=== PATIENT | female | born 1980 | race Caucasian/White ===

== ENCOUNTER 2016-10-03 | Emergency (ER) | payer SELFPAY | END 2016-10-03 16:53 | disposition home or self-care (01) | DX: M79.662 Pain in left lower leg (principal) | CPT/HCPCS: 93971; 99283 ==

== ENCOUNTER → 2020-10-26 | Outpatient (CLI) | payer OTHER ==
[2020-10-26 15:26] LABS: HEMOGLOBIN 11.6 gm/dl (12.3-15.3); RED BLOOD COUNT 4.01 M/UL (4.00-5.10)
[2020-10-26 15:30] LABS: WHITE BLOOD COUNT 42.3 K/UL (4.5-11.0)
[2020-10-26 15:37] LABS: BUN/CREATININE RATIO 26 (0-10)
== END ==
LOC: LAB 13:55
DX: C92.10 Chronic myeloid leukemia, BCR/ABL-positive, not having achieved remission (principal)
CPT/HCPCS: 80053; 85007; 85027

== ENCOUNTER → 2020-11-02 | Outpatient (CLI) | payer OTHER | LOC: RAD 13:21 | DX: B34.9 Viral infection, unspecified (principal); R91.8 Other nonspecific abnormal finding of lung field | CPT/HCPCS: 71046 ==

== ENCOUNTER → 2020-12-07 | Outpatient (CLI) | payer OTHER ==
[2020-12-07 15:48] LABS: BUN/CREATININE RATIO 12 (0-10)
[2020-12-07 17:32] LABS: HEMOGLOBIN 9.3 gm/dl (12.3-15.3); RED BLOOD COUNT 3.45 M/UL (4.00-5.10)
== END ==
LOC: LAB 14:55
PROVIDERS: Physician Assistant
DX: J18.9 Pneumonia, unspecified organism (principal); C92.10 Chronic myeloid leukemia, BCR/ABL-positive, not having achieved remission; J40 Bronchitis, not specified as acute or chronic
CPT/HCPCS: 36415; 71046; 80053; 85007; 85027

== ENCOUNTER 2021-06-27 12:21 | Emergency (ER) | payer OTHER ==
[2021-06-27 13:44] LABS: RED BLOOD COUNT 3.19 M/UL (4.00-5.10)
[2021-06-27 14:02] LABS: BUN/CREATININE RATIO 10 (0-10)
[2021-06-27 14:17] LABS: WHITE BLOOD COUNT 151.9 K/UL (4.5-11.0)
== END 2021-06-27 16:00 | disposition home or self-care (01) ==
LOC: ER1 12:21
PROVIDERS: Physician Assistant
DX: R21 Rash and other nonspecific skin eruption (principal); R51.9 Headache, unspecified; D72.829 Elevated white blood cell count, unspecified; D64.9 Anemia, unspecified
CPT/HCPCS: 70450; 80053; 81001; 83690; 84703; 85007; 85027; 96374; 96375; 99284; J1200; J2765

== ENCOUNTER → 2021-08-25 | Outpatient (CLI) | payer OTHER ==
[2021-08-25 10:57] LABS: RED BLOOD COUNT 2.87 M/UL (4.00-5.10); WHITE BLOOD COUNT 3.7 K/UL (4.5-11.0)
== END ==
LOC: OPSV 10:15
PROVIDERS: Internal Medicine Hematology & Oncology
DX: C92.10 Chronic myeloid leukemia, BCR/ABL-positive, not having achieved remission (principal)
CPT/HCPCS: 85025

== ENCOUNTER → 2021-08-27 | Outpatient (CLI) | payer OTHER ==
[~2021-08-27] VITALS: Ht 147.3 cm; Wt 40.8 kg
[2021-08-27 12:14] LABS: HEMOGLOBIN 8.3 gm/dl (12.3-15.3); RED BLOOD COUNT 3.06 M/UL (4.00-5.10)
[2021-08-27 12:17] LABS: WHITE BLOOD COUNT 6.1 K/UL (4.5-11.0)
== END ==
LOC: OPSV 11:00
PROVIDERS: Internal Medicine Hematology & Oncology
DX: C92.10 Chronic myeloid leukemia, BCR/ABL-positive, not having achieved remission (principal)
CPT/HCPCS: 85025; 96523; J1642

== ENCOUNTER → 2021-09-03 | Outpatient (CLI) | payer OTHER ==
[~2021-09-03] VITALS: Ht 152.4 cm; Wt 41.0 kg
[2021-09-03 11:35] LABS: HEMOGLOBIN 7.4 gm/dl (12.3-15.3); RED BLOOD COUNT 2.67 M/UL (4.00-5.10)
[2021-09-03 12:19] LABS: BUN/CREATININE RATIO 14 (0-10)
[2021-09-03 12:26] LABS: WHITE BLOOD COUNT 38.1 K/UL (4.5-11.0)
== END ==
LOC: OPSV 10:54
PROVIDERS: Internal Medicine Hematology & Oncology
DX: Z45.2 Encounter for adjustment and management of vascular access device (principal)
CPT/HCPCS: 80053; 85007; 85027; J1642

== ENCOUNTER → 2021-09-08 | Outpatient (CLI) | payer OTHER ==
[~2021-09-08] VITALS: Ht 152.4 cm; Wt 41.0 kg
[2021-09-08 12:32] LABS: BUN/CREATININE RATIO 24 (0-10)
[2021-09-08 13:03] LABS: RED BLOOD COUNT 2.59 M/UL (4.00-5.10)
[2021-09-08 15:09] LABS: WHITE BLOOD COUNT 39.8 K/UL (4.5-11.0)
== END ==
LOC: OPSV 11:00
PROVIDERS: Internal Medicine Hematology & Oncology
DX: C92.10 Chronic myeloid leukemia, BCR/ABL-positive, not having achieved remission (principal)
CPT/HCPCS: 80053; J1642

== ENCOUNTER 2021-09-14 15:26 | Emergency (ER) | payer OTHER ==
[2021-09-14 16:00] LABS: RED BLOOD COUNT 2.28 M/UL (4.00-5.10)
[2021-09-14 16:16] LABS: HEMOGLOBIN 6.3 gm/dl (12.3-15.3); WHITE BLOOD COUNT 108.3 K/UL (4.5-11.0)
[2021-09-14 16:18] LABS: BUN/CREATININE RATIO 11 (0-10)
[2021-09-15 01:47] LABS: HEMOGLOBIN 7.5 gm/dl (12.3-15.3); RED BLOOD COUNT 2.62 M/UL (4.00-5.10); WHITE BLOOD COUNT 87.2 K/UL (4.5-11.0)
[2021-09-16] MEDS ORDERED: HYDROCODON-ACE1 EAC4 PO (20:51)
[2021-09-16] MEDS ORDERED: PROTONIX40 MG PO (20:55)
[2021-09-16] MEDS ORDERED: ONDANSETRON ODT4 MG SL (20:55)
== END 2021-09-15 02:35 | disposition home or self-care (01) ==
LOC: ER1 15:26
PROVIDERS: Emergency Medicine; Physician Assistant
DX: C95.90 Leukemia, unspecified not having achieved remission (principal); D64.9 Anemia, unspecified; Z20.822 Contact with and (suspected) exposure to COVID-19
CPT/HCPCS: 0240U; 36430; 80053; 85007; 85027; 86850; 86900; 86901; 86920; 99283; P9016

== ENCOUNTER 2021-09-16 15:29 | Emergency (ER) | payer OTHER ==
[2021-09-16 16:48] LABS: HEMOGLOBIN 9.1 gm/dl (12.3-15.3)
[2021-09-16 16:53] LABS: BUN/CREATININE RATIO 25 (0-10)
[2021-09-16 16:58] LABS: RED BLOOD COUNT 3.22 M/UL (4.00-5.10)
[2021-09-16 17:19] LABS: WHITE BLOOD COUNT 126.3 K/UL (4.5-11.0)
[2021-09-16] MEDS ORDERED: HYDROCODON-ACE1 EAC4 PO (20:51)
[2021-09-16] MEDS ORDERED: PROTONIX40 MG PO (20:55)
[2021-09-16] MEDS ORDERED: ONDANSETRON ODT4 MG SL (20:55)
== END 2021-09-17 03:00 | disposition short-term general hospital (02) ==
LOC: ER1 15:29
PROVIDERS: Physician Assistant Medical
DX: R16.1 Splenomegaly, not elsewhere classified (principal); C92.10 Chronic myeloid leukemia, BCR/ABL-positive, not having achieved remission; Z20.822 Contact with and (suspected) exposure to COVID-19
CPT/HCPCS: 80053; 81001; 82550; 82553; 83605; 83690; 83874; 84484; 84703; 85007; 85027; 93005; 96374; 96375; 99285; C9113; J1170; J2270; J2405; Q9967; U0002

== ENCOUNTER → 2021-10-01 | Outpatient (CLI) | payer OTHER ==
[~2021-10-01] VITALS: Ht 152.4 cm; Wt 41.0 kg
[~2021-10-01] MED LIST: HYDROCODON-ACE1 EAC4 PO; ONDANSETRON ODT4 MG SL; PROTONIX40 MG PO
[2021-10-01 11:13] LABS: HEMOGLOBIN 6.8 gm/dl (12.3-15.3)
== END ==
LOC: OPSV 09:49
PROVIDERS: Internal Medicine Hematology & Oncology
DX: D64.9 Anemia, unspecified (principal); C91.10 Chronic lymphocytic leukemia of B-cell type not having achieved remission
CPT/HCPCS: 36430; 85014; 85018; 86850; 86900; 86901; 86920; 96375; J1642; J1940; P9016

== ENCOUNTER 2021-11-13 21:43 | Emergency (ER) | payer OTHER ==
[2021-11-14] LABS: RED BLOOD COUNT 2.02 M/UL (4.00-5.10)
[2021-11-14 00:05] LABS: HEMOGLOBIN 5.9 gm/dl (12.3-15.3); WHITE BLOOD COUNT 93.3 K/UL (4.5-11.0)
[2021-11-14 00:14] LABS: BUN/CREATININE RATIO 28 (0-10)
== END 2021-11-14 04:36 | disposition short-term general hospital (02) ==
LOC: ER1 21:43
PROVIDERS: Student in an Organized Health Care Education/Training Program
DX: I27.89 Other specified pulmonary heart diseases (principal); I26.99 Other pulmonary embolism without acute cor pulmonale; R16.1 Splenomegaly, not elsewhere classified; Z20.822 Contact with and (suspected) exposure to COVID-19
CPT/HCPCS: 36430; 71045; 80053; 85007; 85027; 85610; 85730; 86850; 86900; 86901; 86920; 96374; 96376; 99285; J1644; J2270; J2405; J7030; J7050; P9016; U0002

== ENCOUNTER 2021-11-29 16:20 | Inpatient (IN) | payer OTHER ==
[~2021-11-29] VITALS: Ht 147.3 cm; Wt 44.5 kg
[2021-11-29 18:52] LABS: RED BLOOD COUNT 1.72 M/UL (4.00-5.10)
[2021-11-29 19:22] LABS: HEMOGLOBIN 5.1 gm/dl (12.3-15.3)
[2021-11-29 19:47] LABS: BUN/CREATININE RATIO 8 (0-10)
[2021-11-30 07:04] LABS: BUN/CREATININE RATIO 5 (0-10)
[2021-11-30 07:17] LABS: HEMOGLOBIN 6.3 gm/dl (12.3-15.3); RED BLOOD COUNT 2.19 M/UL (4.00-5.10); WHITE BLOOD COUNT 275.5 K/UL (4.5-11.0)
[2021-11-30 08:37] LABS: HEMOGLOBIN 6.9 gm/dl (12.3-15.3)
[2021-11-30] MEDS ORDERED: ELIQUIS5 MG PO (09:40)
[2021-11-30] MEDS ORDERED: VENCLEXTA 100 MG PO (09:42)
[2021-11-30] MEDS ORDERED: HYDROXYUREA500 MG PO (09:42)
[2021-11-30] MEDS ORDERED: LORAZEPAM0.5 MG PO (09:43)
[2021-11-30] MEDS ORDERED: ONDANSETRON HCL8 MG PO (09:43)
[2021-11-30] MEDS ORDERED: FAMOTIDINE20 MG PO (12:04)
[2021-11-30] MEDS ORDERED: SENNA8.6 MG PO (12:04)
[2021-11-30] MEDS ORDERED: PEG3350510 GM PO (12:04)
[2021-11-30 15:07] LABS: HEMOGLOBIN 8.7 gm/dl (12.3-15.3)
[2021-12-01 02:14] LABS: HEMOGLOBIN 9.8 gm/dl (12.3-15.3)
[2021-12-01 02:27] LABS: RED BLOOD COUNT 3.31 M/UL (4.00-5.10); WHITE BLOOD COUNT 307.8 K/UL (4.5-11.0)
[2021-12-01 04:39] LABS: BUN/CREATININE RATIO 12 (0-10)
[2021-12-01 13:09] LABS: WHITE BLOOD COUNT 239.6 K/UL (4.5-11.0)
--- NOTE | 2021-12-02 02:04 | NUR ---
PATIENT'S SON AT BEDSIDE AND NOTIFIED OF PATIENT DECLINE
[2021-12-02 02:15] LABS: HEMOGLOBIN 10.2 gm/dl (12.3-15.3); RED BLOOD COUNT 3.45 M/UL (4.00-5.10)
[2021-12-02 02:28] LABS: WHITE BLOOD COUNT 297.3 K/UL (4.5-11.0)
--- NOTE | 2021-12-02 03:10 | NUR ---
0228 CALLED TIME OF WITH A SECOND NURSE BRICKLAYER SUPERVISOR, BREEZY ALEXANDER RN. ALL LOBES AUSCULTATED, ALL PULSES PALPATED. PTS SON WAS AT BEDSIDE AT TIME OF . ALL LINES REMOVED. POST MORTEM CARE TO BE PERFORMED.
--- NOTE | 2021-12-02 03:12 | NUR ---
PTS SON IS A MINOR AND I SPOKE TO BAR MACHINE OPERATOR PRODUCTION ABOUT PROTOCOL. I ALSO SPOKE TO THE HOME REGARDING IF HE COULD SIGN THE PAPER TO RELEASE HER BODY, AND THEY TOLD ME IF HE WAS THE ONLY NEXT OF [place], HE COULD. OTHER FAMILY LIVES [place]. SPOKE TO CLOSE FRIEND OF PATIENT, AND THEY VERIFIED THAT HE COULD STAY WITH THEM.
--- NOTE | 2021-12-02 03:28 | NUR ---
SENIOR INTERNATIONAL TAX MANAGER, CALLED DIRECTOR OF ANALYTICAL DEVELOPMENT TO VERIFY THAT THE SON WHO IS UNDERAGE COULD LEAVE WITH THE FAMILY FRIEND THAT ARRIVED AT THE HOSPITAL
[2021-12-02 04:02] LABS: BUN/CREATININE RATIO 31 (0-10)
== END 2021-12-02 03:35 | disposition expired | DRG 840 ==
LOC: ER1 16:20 → PROG CARE 23:05 → CDU 23:05 → PROG CARE 11-30 06:18
PROVIDERS: Emergency Medicine; Internal Medicine; Internal Medicine Infectious Disease; Registered Nurse; ADMIT Internal Medicine
PROC: 30233N1 Transfusion of Nonautologous Red Blood Cells into Peripheral Vein, Percutaneous Approach (ICD-10-PCS; principal; 2021-11-29)
PROC: 3E03329 Introduction of Other Anti-infective into Peripheral Vein, Percutaneous Approach (ICD-10-PCS; 2021-11-29)
DX: C86.4 Blastic NK-cell lymphoma (principal); A41.9 Sepsis, unspecified organism; I26.99 Other pulmonary embolism without acute cor pulmonale; C92.10 Chronic myeloid leukemia, BCR/ABL-positive, not having achieved remission; D61.818 Other pancytopenia; R64 Cachexia; R00.0 Tachycardia, unspecified; D63.0 Anemia in neoplastic disease; E87.70 Fluid overload, unspecified; D70.9 Neutropenia, unspecified; R50.81 Fever presenting with conditions classified elsewhere; Z20.822 Contact with and (suspected) exposure to COVID-19; Z98.890 Other specified postprocedural states; Z82.49 Family history of ischemic heart disease and other diseases of the circulatory system; Z83.3 Family history of diabetes mellitus; Z81.8 Family history of other mental and behavioral disorders; Z88.8 Allergy status to other drugs, medicaments and biological substances
CPT/HCPCS: 0240U; 36415; 36430; 36600; 70553; 71045; 80048; 80053; 81001; 82550; 82553; 82803; 82962; 83605; 83690; 83735; 83880; 84100; 84439; 84443; 84484; 84550; 84703; 85007; 85014; 85018; 85027; 85610; 85730; 86850; 86900; 86901; 86920; 87040; 87086; 93005; 94640; 94760; 96374; 96375; 99285; A9577; C9113; J0692; J1940; J2060; J2270; J2405; J2550; J3370; J3475; J7050; J7070; P9016; Q9967